=== PATIENT | female | born 1960 | race Two or more races ===

== ENCOUNTER 2018-11-16 00:36 | Emergency (ER) | payer OTHER ==
[2018-11-16 00:57] VITALS: TEMP 98.6; BMI 25.5
--- NOTE | 2018-11-16 01:19 | PDOC ---
Attending Attestation - Resident Resident Name: Ravi Rodriguez - ED Attending Attestation I have performed the following: I have examined & evaluated the patient, The case was reviewed & discussed with the resident, I agree w/resident's findings & plan - HPI HPI: 11/16/18 04:41 see resident hpi - Physicial Exam PE: 11/16/18 04:41 agree with resident exam - Medical Decision Making 11/16/18 04:41 58-year-old female with lower abdominal/suprapubic pain and dysuria Exam consistent with urinary tract infection CT scan suggests a sending aspect with no brandt pyelonephritis Patient given Rocephin 1 g IV piggyback in the emergency department She is well-appearing with no secondary signs of Sirs/sepsis She will be discharged on Levaquin 750 mg x 5 days
[2018-11-16] MEDS ORDERED: ACETAMINOPHEN 1000 MG/100 ML VIAL (NON FORMULARY) IVPB ONE (01:20)
[2018-11-16] MEDS ORDERED: SODIUM CHLORIDE 0.9% 1000 ML INFUS.BAG IV ONE (01:20)
[2018-11-16 01:58] LABS: BASO % 0.4 % (0-2.0); EOS % 0.3 % (0-4.5); HEMATOCRIT 35.2 % (32.4-45.2); HEMOGLOBIN 11.4 GM/dL (10.7-15.3); LYMPH % 22.3 % (8-40); MCH 28.3 pg (25.7-33.7); MCHC 32.3 g/dl (32.0-36.0); MEAN CELL VOLUME 87.7 fl (80-96); MEAN PLT VOLUME 7.8 fl (7.5-11.1); MONO % 8.4 % (3.8-10.2); NEUT % 68.6 % (42.8-82.8); PLATELET COUNT 206 K/MM3 (134-434); RBC 4.02 M/mm3 (3.60-5.2); RDW 14.6 % (11.6-15.6); WHITE BLOOD COUNT 9.7 K/mm3 (4.0-10.0)
[2018-11-16 02:03] LABS: EPI CELLS 4.4 /HPF (0-5/HPF); HYALINE CASTS 49 /lpf (0-8); PH,URINE 6.5 (5.0-8.0); URINE APPEARANCE TURBID; URINE BACTERIA 934.4 /hpf (NEGATIVE); URINE BILIRUBIN NEGATIVE (NEGATIVE); URINE COLOR YELLOW; URINE GLUCOSE (UA) NEGATIVE (NEGATIVE); URINE KETONE NEGATIVE (NEGATIVE); URINE LEUK ESTERASE 3+ (NEGATIVE); URINE NITRITE POSITIVE (NEGATIVE); URINE PROTEIN 3+ (NEGATIVE); URINE RBC 326 /hpf (0-4); URINE WBC 2844 /hpf (0-5)
[2018-11-16 02:25] LABS: ALBUMIN 2.8 g/dl (3.4-5.0); BILIRUBIN,TOTAL 0.8 mg/dL (0.2-1); BLOOD UREA NITROGEN 14.9 mg/dL (7-18); CREATININE 0.5 mg/dL (0.55-1.3); POTASSIUM 3.7 mmol/L (3.5-5.1); TOT PROT 6.1 g/dl (6.4-8.2)
[2018-11-16] MEDS ORDERED: CEFTRIAXONE 1,000 MG in DEXTROSE 5%-WATER - 50 ML IVPB ONE (02:53)
[2018-11-16] MEDS ORDERED: CEFTRIAXONE 1 GM/50 ML BAG ONE (03:03)
--- NOTE | 2018-11-16 03:38 | PDOC ---
History of Present Illness - General Chief Complaint: Urinary Problem Stated Complaint: URINARY PROBLEM Time Seen by Provider: 11/16/18 01:14 History Source: Patient Exam Limitations: No Limitations - History of Present Illness Initial Comments: 11/16/18 03:38 58F with no PMH presents to the ER with complaints of dysuria and urgency with flank pain. The patient states that she began feeling urgency and dysuria without discharge or abdominal pain 3-4 days ago. Last night, she began to feel abdominal pain and flank pain with chills. She also has sharp suprapubic abdominal, nonradiating that started last night as well. She denies hematochezia , nausea, vomiting, diarrhea but admits to hematuria/blood when she wipes. Past History - Past Medical History Allergies/Adverse Reactions: Allergies Allergy/AdvReac Type Severity Reaction Status Date / Time No Known Allergies Allergy Verified 11/16/18 01:27 Home Medications: Ambulatory Orders levoFLOXacin [Levaquin -] 750 mg PO DAILY #5 tablet 11/16/18 COPD: No - Reproductive History Is Patient Now?: No - Psycho Social/Smoking Cessation Hx Smoking History: Never smoked Have you smoked in the past 12 months: No Information on smoking cessation initiated: No Hx Alcohol Use: No Drug/Substance Use Hx: No Review of Systems - Review of Systems Able to Perform ROS?: Yes Is the patient limited Turkish proficient: No Constitutional: Yes: Chills. No: Fever, Weakness Respiratory: No: Cough, Shortness of Breath Cardiac (ROS): No: Chest Pain, Palpitations ABD/GI: Yes: Other (Suprapubic abd pain). No: Nausea, Vomiting : Yes: Burning, Dysuria, Flank Pain, Pain, Urgency. No: Discharge Musculoskeletal: Yes: Back Pain *Physical Exam - Vital Signs Last Vital Signs Temp Pulse Resp BP Pulse Ox 98.6 F 96 H 17 119/52 L 100 11/16/18 00:54 11/16/18 00:54 11/16/18 00:54 11/16/18 00:54 11/16/18 00:54 - Physical Exam General Appearance: Yes: Nourished, Appropriately Dressed. No: Apparent Distress HEENT: positive: Normal Voice, Hearing Grossly Normal Respiratory/Chest: positive: Lungs Clear, Normal Breath Sounds. negative: Chest Tender Cardiovascular: positive: Regular Rhythm, Regular Rate, S1, S2. negative: Diastolic Murmur, Systolic Murmur Gastrointestinal/Abdominal: positive: Tender (Suprapubic abd), Flat, Soft. negative: Decreased BS, Protuberent, Distended Musculoskeletal: positive: CVA Tenderness, CVA Tenderness (R), CVA Tenderness (L ) Extremity: positive: Normal Inspection, Normal Range of Motion Integumentary: positive: Normal Color, Dry, Warm Neurologic: positive: Alert, Normal Mood/Affect ED Treatment Course - LABORATORY CBC & Chemistry Diagram: 11/16/18 01:47 11/16/18 01:47 - ADDITIONAL ORDERS Additional order review: Laboratory Results 11/16/18 11/16/18 01:47 01:47 Sodium 141 Potassium 3.7 Chloride 108 H Carbon Dioxide 27 Anion Gap 6 L BUN 14.9 Creatinine 0.5 L Est GFR (CKD-EPI)AfAm 125.40 Est GFR (CKD-EPI)NonAf 108.19 Random Glucose 109 H Calcium 8.0 L Total Bilirubin 0.8 AST 14 L ALT 16 Alkaline Phosphatase 69 Total Protein 6.1 L Albumin 2.8 L Urine Color Yellow Urine Appearance Turbid Urine pH 6.5 Ur Specific [place] 1.018 Urine Protein 3+ H Urine Glucose (UA) Negative Urine Ketones Negative Urine Blood 3+ H Urine Nitrite Positive H Urine Bilirubin Negative Urine Urobilinogen 1.0 Ur Leukocyte Esterase 3+ H Urine WBC (Auto) 2844 Urine RBC (Auto) 326 Urine Casts (Auto) 49 U Pathogenic Cast Auto None seen U Epithel Cells (Auto) 4.4 Urine Bacteria (Auto) 934.4 11/16/18 01:47 RBC 4.02 MCV 87.7 MCHC 32.3 RDW 14.6 MPV 7.8 Neutrophils % 68.6 Lymphocytes % 22.3 Monocytes % 8.4 Eosinophils % 0.3 Basophils % 0.4 - RADIOLOGY Radiology Studies Ordered: Category Date Time Status ABDOMEN & PELVIS CT WITH CONTR [CT] Stat CT Scan 11/16/18 02:53 Taken - Medications Given in the ED: ED Medications Discontinued Medications Generic Name Dose Route Start Last Admin Trade Name Freq PRN Reason Stop Dose Admin Acetaminophen 1,000 mg 11/16/18 01:20 11/16/18 01:57 Ofirmev Injection - IVPB 11/16/18 01:21 1,000 mg ONCE ONE Administration Ceftriaxone Sodium 1,000 mg/ 50 mls @ 100 mls/hr 11/16/18 02:53 11/16/18 03: 35 Dextrose IVPB 11/16/18 03:22 100 mls/hr ONCE ONE Administration Sodium Chloride 1,000 ml 11/16/18 01:20 11/16/18 01:57 Normal Saline - IV 11/16/18 01:21 1,000 ml ONCE ONE Administration Medical Decision Making - Medical Decision Making 11/16/18 04:16 58F who presents to the ER with dysuria and flank pain, concerning for pyelo. Labs WNL. UA shows UTI. CTAP: IMPRESSION: Moderate cystitis with probable ascending bilateral ureteritis but no definite CT findings for pyelonephritis. Mild bilateral hydronephrosis may be due to edema at the bilateral uterovesical junctions. Tiny right renal stone. Will treat for pyelo and d/c with PCP f/u. Discharge - Discharge Information Problems reviewed: Yes Clinical Impression/Diagnosis: Pyelonephritis Condition: Stable Disposition: HOME - Admission No - Additional Discharge Information Prescriptions: levoFLOXacin [Levaquin -] 750 mg PO DAILY #5 tablet - Follow up/Referral Referrals: Rema Santamaria MD [Primary Care Provider] - - Patient Discharge Instructions Patient Printed Discharge Instructions: DI for Kidney Infection Additional Instructions: Your ER visit is not complete until your follow up with your primary care physician. Please follow up with your primary care physician in 1-2 days. Please return to the ER if you have any signs or symptoms of chest pain, shortness of breath, uncontrollable fever, chills, nausea, vomiting, numbness, tingling, or weakness in any part of your body, changes in vision, or slurred speech. Please take your medications as prescribed. Please return to the ER if symptoms persist, worsen, or new symptoms arise. - Post Discharge Activity
[2018-11-16 04:49] VITALS: BP 122/59; PULSE 92
== END 2018-11-16 04:51 | disposition home or self-care (01) ==
LOC: JER 00:36
PROC: 3E033NZ Introduction of Analgesics, Hypnotics, Sedatives into Peripheral Vein, Percutaneous Approach (ICD-10-PCS; principal; 2018-11-16)
PROC: 3E03329 Introduction of Other Anti-infective into Peripheral Vein, Percutaneous Approach (ICD-10-PCS; 2018-11-16)
PROC: 3E0337Z Introduction of Electrolytic and Water Balance Substance into Peripheral Vein, Percutaneous Approach (ICD-10-PCS; 2018-11-16)
DX: N12 Tubulo-interstitial nephritis, not specified as acute or chronic (principal)
CPT/HCPCS: 36415; 74177-TC; 80053; 81003; 85025; 87086; 87186; 99283-25; J0131; J7030